=== PATIENT | female | born 1990 | race Caucasian/White ===

== ENCOUNTER 2019-01-18 17:26 | Emergency (ER) | payer OTHER ==
--- NOTE | 2019-01-18 17:35 | ED Physician Documentation ---
History of Present Illness - Stated complaint Stated Complaint: L HAND INJ - Chief complaint Chief Complaint: Ext Problem - History obtained from History obtained from: Patient - History of Present Illness Timing: Prior to arrival - Additonal information Additional information: Patient is a right-handed previously healthy 28-year-old female presenting with left hand injury that occurred just prior to arrival when she was trying to remove a cup from a car seat. Patient reports that the cup was stuck and it came out quickly and she jammed her hand and specifically her fingers into the car seat. Patient's pain is located at the base of her right finger and has decreased strength and range of motion because of such. Patient denies any paresthesias, abrasions, lacerations or other injuries. Patient is breast- feeding. No other improving or worsening factors noted. Review of Systems Skin: denies: Rash, Lesions, Abrasion (s) Musculoskeletal: reports: Extremity pain. denies: Joint pain, Extremity swelling, Joint swelling Neurologic: reports: Focal weakness, Numbness PD PAST MEDICAL HISTORY - Past Medical History Past Medical History: No - Past Surgical History Past Surgical History: No - Present Medications Home Medications: Ambulatory Orders Medication Instructions Recorded Confirmed No Known Home Medications 01/18/19 01/18/19 - Allergies Allergies/Adverse Reactions: Allergies Allergy/AdvReac Type Severity Reaction Status Date / Time No Known Drug Allergies Allergy Verified 01/18/19 17:34 PD ED PE NORMAL - Vitals Vital signs reviewed: Yes - General General: Alert and oriented X 3, No acute distress, Well developed/nourished - HEENT HEENT: Atraumatic, Moist mucous membranes - Cardiac Cardiac: Strong equal pulses - Respiratory Respiratory: No respiratory distress - Derm Derm: Normal color, Warm and dry, No rash - Extremities Extremities: No deformity, Other (Left upper extremity is rather unremarkable except for pain to the base of the left ring finger without obvious deformity. Because of pain, patient is unwilling to flex fingers. 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 No obvious changes in sensation to left upper extremity.). No: No tenderness to palpate - Neuro Neuro: Alert and oriented X 3, No sensory deficit. No: No motor deficit - Psych Psych: Normal mood, Normal affect Results - Vitals Vitals: Vital Signs - 24 hr 01/18/19 17:31 Temperature 36.9 C Heart Rate 63 Respiratory 16 Rate Blood Pressure 142/100 H O2 Saturation 98 Oxygen O2 Source Room air Procedures - Splint (location) Upper extremity left Splint applied by: Tech Type of splint: Ulnar gutter Other: Patient tolerated well, No complications, Neurovascular intact, Sling provided PD MEDICAL DECISION MAKING - ED course Complexity details: reviewed results, re-evaluated patient, considered differential, d/w patient ED course: Patient presenting with hand and finger pain. Given concern for possible dislocation or fracture, obtain plain films which did find evidence of spiral fracture of fourth metacarpal. Fracture is not open. Discussed care with patient including use of splint, supportive cares, and orthopedic surgery follow-up. Did discuss narcotics, although as patient is breast-feeding, she declined. Departure - Departure Disposition: 01 Home, Self Care Clinical Impression: Metacarpal bone fracture Qualifiers: Encounter type: initial encounter Metacarpal bone: fourth Fracture type: closed Fracture morphology: other fracture Fracture alignment: nondisplaced Qualified Code(s): S62.398A - Other fracture of other metacarpal bone, initial encounter for closed fracture Condition: Good Instructions: ED Fx Hand Closed Follow-Up: Joni Concepcion MD [Provider Admit Priv/Credential] - Within 3 Days Comments: Please keep splint in place until follow-up with orthopedic surgery. May use sling for comfort. Recommend use of ibuprofen/Tylenol as needed, as well as ice application and elevation. Please contact orthopedic surgery tomorrow to schedule outpatient follow-up. May also follow-up with primary care physician in next 2 to 3 days. Return to ED sooner if experience worsening symptoms or have other concerns.
--- NOTE | 2019-01-18 19:05 | XRAY Report ---
Reason: fourth finger injury Procedure Date: 01/18/2019 Accession Number: [id number] / [id number] Procedure: XR - Hand 3 View LT CPT Code: FULL RESULT: EXAM: LEFT HAND RADIOGRAPHY EXAM DATE: 01/18/2019 06:09 PM. CLINICAL HISTORY: Fourth finger injury. COMPARISON: None. TECHNIQUE: 3 views. FINDINGS: Bones: Nondisplaced spiral fracture of the mid to distal fourth metacarpal. No other left hand fracture seen. Joints: Normal. No subluxations. Soft Tissues: Normal. No soft tissue swelling. IMPRESSION: Nondisplaced spiral fracture of the mid to distal fourth metacarpal. [facility]
[2019-01-18 21:54] VITALS: BP 113/69
== END 2019-01-18 20:38 | disposition home or self-care (01) ==
LOC: ED 17:26
DX: S62.365A Nondisplaced fracture of neck of fourth metacarpal bone, left hand, initial encounter for closed fracture (principal); W22.8XXA Striking against or struck by other objects, initial encounter; Y93.89 Activity, other specified
CPT/HCPCS: 29105; 99282